=== PATIENT | male | born 1965 | race African-American/Black ===

== ENCOUNTER 2017-09-15 15:05 | Emergency (ER) | payer OTHER ==
[2017-09-15] MEDS ORDERED: DIPHTH,PERTUSS(ACELL),TET 0.5 ML DISP.SYRIN IM ONE (15:26)
--- NOTE | 2017-09-15 15:27 | PDOC ---
Rapid Medical Evaluation Time Seen by Provider: 09/15/17 15:25 Medical Evaluation: Allergies Allergy/AdvReac Type Severity Reaction Status Date / Time No Known Allergies Allergy Verified 09/15/17 15:25 09/15/17 15:26 Pt presents to the ED: states glass is lodged in left thumb Pt on brief exam: unable to visualize foreign object Pt ordered for: finger xray and tdap Pt to proceed to the ED Discharge Disposition - Diagnosis Foreign body (FB) in soft tissue - Referrals - Patient Instructions - Post Discharge Activity
[2017-09-15 15:28] VITALS: BP 134/89; PULSE 106; TEMP 99.2; BMI 35.7
--- NOTE | 2017-09-15 16:16 | PDOC ---
History of Present Illness - General Chief Complaint: Foreign Body (FB) Stated Complaint: GLASS IN LT THUMB Time Seen by Provider: 09/15/17 15:25 - History of Present Illness Initial Comments: 09/15/17 16:07 CHIEF COMPLAINT: foreign body to thumb HISTORY OF PRESENT ILLNESS: 51 yo M with no significant PMH presents to fast track with concern of foreign body in left thumb. Patient states he got cut by a broken lightbulb yesterday and believes there is still a piece of glass lodged in his thumb. He denies any fever, chills, nausea, vomiting, diarrhea, but reports pain to the site of the cut. PAST MEDICAL HISTORY: Denies past medical history FAMILY HISTORY: Denies SOCIAL HISTORY: Denies tobacco, alcohol, illicit drug use. SURGICAL HISTORY: Denies ALLERGIES: No known drug allergies REVIEW OF SYSTEMS General/Constitutional: Denies fever or chills. HEENT: Denies change in vision. Denies ear pain or discharge. Denies sore throat. Gastrointestinal: Denies nausea, vomiting, diarrhea. Musculoskeletal: Denies joint or muscle swelling or pain. Denies neck or back pain. Skin: "I think I have a piece of glass stuck in my thumb, it hurts when you press on it." Neurologic: Denies headache, vertigo, loss of consciousness, or loss of sensation. PHYSICAL EXAM General Appearance: Well-appearing, appropriately dressed. HEENT: EOMI, PERRLA. Respiratory/Chest: Lungs CTAB. Cardiovascular: RRR. S1, S2. Musculoskeletal/Extremities: Normal inspection. FROM of all extremities, normal capillary refill. Pelvis Stable. No CVA tenderness. No tenderness to extremities, pedal edema, swelling, erythema or deformity. Integumentary: Superficial healing laceration left thumb, mild surrounding erythema with tenderness on palpation. No foreign body identified, no active bleeding. Appropriate color, dry, warm. Neurologic: tool straightener II-XII intact. Fully oriented, alert. Appropriate mood/affect. Motor strength 5/5. No appreciable EOM palsy, facial droop or sensory deficit. Past History - Past Medical History Allergies/Adverse Reactions: Allergies Allergy/AdvReac Type Severity Reaction Status Date / Time No Known Allergies Allergy Verified 09/15/17 15:25 Home Medications: Ambulatory Orders Cephalexin [Keflex] 500 mg PO BID #14 capsule 09/15/17 COPD: No Hypercholesterolemia: Yes - Suicide/Smoking/Psychosocial Hx Smoking History: Never smoked *Physical Exam - Vital Signs Last Vital Signs Temp Pulse Resp BP Pulse Ox 99.2 F 106 H 19 134/89 100 09/15/17 15:25 09/15/17 15:25 09/15/17 15:25 09/15/17 15:25 09/15/17 15:25 ED Treatment Course - Medications Given in the ED: ED Medications Discontinued Medications Generic Name Dose Route Start Last Admin Trade Name Freq PRN Reason Stop Dose Admin Diphtheria/Tetanus/Acell Pertussis 0.5 ml 09/15/17 15:26 09/15/17 15:45 Boostrix - IM 09/15/17 15:27 0.5 ml .ONCE ONE Administration Medical Decision Making - Medical Decision Making 09/15/17 16:16 51 yo M with no significant PMH presents to fast track with concern of foreign body in left thumb. -left thumb x-ray -tdap x-ray negative for foreign body. No foreign body visualized with magnifying loupes. Will rx keflex for infection prophylaxis. *DC/Admit/Observation/Transfer Diagnosis at time of Disposition: Foreign body (FB) in soft tissue - Discharge Dispostion Disposition: HOME Condition at time of disposition: Stable Admit: No - Prescriptions Prescriptions: Cephalexin [Keflex] 500 mg PO BID #14 capsule - Referrals Referrals: Selma Iglesias MD [Staff Physician] - - Patient Instructions Printed Discharge Instructions: DI for Minor Laceration Additional Instructions: Please take medication as prescribed and complete the entire course of medication, even after your symptoms resolve. If symptoms persist past 3-5 days , please follow up with dermatology. If you develop any fever, chills, nausea, vomiting, or worsening pain to your hand, please return to the ER. - Post Discharge Activity
== END 2017-09-15 16:21 | disposition home or self-care (01) ==
LOC: JERFT 15:05
PROC: 3E0234Z Introduction of Serum, Toxoid and Vaccine into Muscle, Percutaneous Approach (ICD-10-PCS; principal; 2017-09-15)
DX: S61.012A Laceration without foreign body of left thumb without damage to nail, initial encounter (principal); W25.XXXA Contact with sharp glass, initial encounter; Y93.89 Activity, other specified; Y92.89 Other specified places as the place of occurrence of the external cause; Y99.8 Other external cause status
CPT/HCPCS: 73140-TC-LT; 90715; 99281-25